=== PATIENT | female | born 2000 | race American Indian/Alaskan Native ===

== ENCOUNTER 2020-03-01 11:17 | Emergency (ER) | payer OTHER ==
[~2020-03-01] VITALS: Ht 162.6 cm; Wt 56.4 kg
[2020-03-01 11:27] VITALS: TEMP 97.6
[2020-03-01 12:30] VITALS: BP 120/74; PULSE 84
== END 2020-03-01 12:30 | disposition home or self-care (01) ==
LOC: COL.ER 11:17
DX: Z46.89 Encounter for fitting and adjustment of other specified devices (principal); Z88.0 Allergy status to penicillin; Z88.2 Allergy status to sulfonamides